=== PATIENT | male | born 1955 | race Caucasian/White ===

== ENCOUNTER 2023-07-27 18:33 | Inpatient (IN) | payer MEDICARE, SELFPAY ==
--- NOTE | ~2023-07-27 | CT_ITS ---
Non-contrast CT scan of the Abdomen and Pelvis Clinical indication: Pain Technique: 2.5 mm axial scans were obtained through the abdomen and pelvis without intravenous or or al contrast. Dose reduction technique was used on this scan by utilizing automated exposure control a nd iterative reconstruction technique. The dose-length product (DLP) was 1137.75 mGy-cm. Findings: Images through the lung bases reveal partially imaged moderate bilateral pleural effusions with partial bilateral lower lobe atelectasis. Kidneys are relatively atrophic bilaterally. There is a 2.7 cm left renal mass, which could reflect h yperdense cyst versus solid lesion. The liver, spleen, pancreas, gallbladder, and adrenals appear normal. There are atherosclerotic calci fications of the aorta. There is no evidence of bowel obstruction. Rectosigmoid anastomosis noted. Images through the pelvis were performed. There is no evidence of ascites or lymphadenopathy. Right l ower quadrant transplant kidney present, without hydronephrosis. Urinary bladder unremarkable. No pel you mass seen. There are bilateral L5 pars interarticularis defects, with 8 mm anterolisthesis of L5 over S1. Impression: Moderate bilateral pleural effusions with partial bilateral lower lobe atelectasis. 2.7 cm left renal mass, which could reflect solid lesion versus possibly hyperdense cyst. Pre and pos tcontrast CT or MR recommended to assess for solid lesion which would be suspicious for neoplasm. Right lower quadrant transplant kidney, without hydronephrosis. Bilateral L5 pars interarticularis defects. Reviewed, dictated and finalized at [facility]. Impression: Moderate bilateral pleural effusions with partial bilateral lower lobe atelecta sis. 2.7 cm left renal mass, which could reflect solid lesion versus possibly hyperd ense cyst. Pre and postcontrast CT or MR recommended to assess for solid lesion which would be suspicious for neoplasm. Right lower quadrant transplant kidney, without hydronephrosis. Bilateral L5 pars interarticularis defects.
--- NOTE | ~2023-07-27 | MR_ITS ---
EXAMINATION: MR abdomen wo/w con DATE: 07/31/2023 11:43 INDICATION: Left kidney mass. TECHNIQUE: Magnetic resonance imaging (MRI) of the abdomen was performed without and with 17 mL Multi Zaid intravenous contrast. COMPARISON: CT abdomen and pelvis 07/29/2023 FINDINGS: There are moderate-sized right and small left pleural effusions. There are cysts in the liver measuri ng up to 5 mm. The gallbladder is contracted. Calcifications in the spleen are consistent with old gr anulomatous disease. The pancreas and adrenal glands are normal. There is severe atrophy of the nativ e kidneys. There is a 7 mm cyst in right kidney. There is a 2.8 cm hemorrhagic cyst in left kidney. T here is a transplant kidney in right iliac fossa. There are no dilated loops of bowel. There are no p athologically enlarged lymph nodes. There is no free intraperitoneal fluid. There are 2 left-sided ve ntral hernias containing fat. There is a right groin catheter with tip in the inferior vena cava. The re are prominent subcutaneous veins in anterior abdominal wall. IMPRESSION: 1. 2.8 cm hemorrhagic cyst in left kidney. 2. Moderate-sized right and small left pleural effusions. Reviewed, dictated and finalized at location A.
--- NOTE | ~2023-07-27 | XR_ITS ---
EXAMINATION: XR chest 1V portable Exam Date/Time: 07/27/2023 20:15 CDT HISTORY: anemia Comparison: None. RESULT: Lines, tubes, and devices: None. Lungs and pleura: Hazy right basilar groundglass opacities, streaky bibasilar subsegmental opacities , mild bilateral costophrenic angle blunting. Cardiomediastinal silhouette: Stable. Other: No acute osseous or upper abdominal finding. IMPRESSION: Bibasilar subsegmental atelectasis/consolidation. Small bilateral pleural effusions, greater on the r ight. Reviewed, dictated and finalized at location [facility]. IMPRESSION: Bibasilar subsegmental atelectasis/consolidation. Small bilateral pleural effus ions, greater on the right.
[2023-07-27 18:31] VITALS: BP 124/59; PULSE 67; RESP 15; TEMP 36.1; O2SAT 91
--- NOTE | 2023-07-27 19:32 | ECG_ITS ---
SEE SCANNED COPY FOR CONFIRMED REPORT MTDD
--- NOTE | 2023-07-27 20:05 | ED.GENADULT ---
HPI - General Adult General Chief complaint: Recheck/Abnormal Lab/Rx Stated complaint: GETTING A BLOOD TXF AND NEEDS A HD NURSE Time Seen by Provider: 07/27/23 19:12 History of Present Illness HPI narrative: This is a 68-year-old male with history end-stage renal disease Wednesday sent in for low hemoglobin. Hemoglobin 6.6 at rehab. His only concern is he has had 4 days black diarrhea although he is on iron supplementation 3 times a day. Patient is a vasculopath and has very difficult access. He has a hemodialysis catheter in his thigh which is the only access available for this patient. He can only be accessed by hemodialysis nurse which we do not have in our emergency department. Related Data Home Medications Medication Instructions Recorded Confirmed allopurinol 100 mg tablet 200 mg PO DAILY@0800 07/21/23 apixaban 2.5 mg tablet 2.5 mg PO BID 07/21/23 07/21/23 ascorbic acid (vitamin C) 1,000 mg 1 g PO BID 07/21/23 07/21/23 tablet aspirin 81 mg capsule 81 mg PO DAILY 07/21/23 07/21/23 chlorthalidone 25 mg tablet 25 mg PO DAILY 07/21/23 07/21/23 ferrous sulfate 325 mg (65 mg 325 mg PO TIDWM 07/21/23 07/21/23 iron) tablet fluconazole 200 mg tablet 200 mg PO DAILY 07/21/23 07/21/23 hydralazine 25 mg tablet 25 mg PO TID 07/21/23 07/21/23 hydralazine 50 mg tablet 25 mg PO TID 07/21/23 mycophenolate sodium 360 mg 360 mg PO BID 07/21/23 07/21/23 tablet,delayed release nifedipine 60 mg tablet,extended 60 mg PO DAILY 07/21/23 07/21/23 release omeprazole 20 mg capsule,delayed 20 mg PO DAILY 07/21/23 07/21/23 release potassium chloride 20 mEq 10 meq PO DAILY 07/21/23 07/21/23 tablet,extended release (K-Tab) tacrolimus 1 mg tablet,extended 1 mg PO DAILY 07/21/23 07/21/23 release 24 hr (Envarsus XR) torsemide 20 mg tablet 40 mg PO BID 07/21/23 07/21/23 tramadol 50 mg tablet 50 mg PO Q12H PRN pain 07/21/23 07/21/23 Allergies Allergy/AdvReac Type Severity Reaction Status Date / Time acetaminophen Allergy Unknown Verified 03/21/22 05:06 iron dextran complex Allergy Anaphylactic Verified 03/21/22 05:01 Shock hydrocodone AdvReac Itching Verified 03/21/22 05:08 PMFSH Family History Family History Other Diabetes mellitus Heart disease Hyperchloremia Hypertension Social History Social History Smoking packs per day: 2 Smoking cigarettes per day: 40.0 Years smoked: 40 Smoking pack-years: 80.00 Smoking status: Former smoker Tobacco type: cigarettes Do You Feel Safe in your Home?: Yes Lack of Transportation: No Lack of Food: Never True Current Housing: I Have Housing Concerned About Future Housing: No Difficulty Paying Gas/Electric Bills: No Difficulty Paying for Meds: No Currently Unemployed: No Education: Decline to Answer Difficulty w/ Childcare or Family Care: No Spiritual care concerns: No Exam Narrative: APPEARANCE: No apparent distress. Head: atraumatic. EYES: EOMI, NOSE: Atraumatic NECK: Trachea midline RESPIRATORY: No increased rate of breathing clear to auscultation CARDIOVASCULAR: RRR, ABDOMINAL: Non-distended soft nontender, rectal exam showed no blood or stool in the rectal vault. Hemoccult negative MUSCULOSKELETAl: No obvious deformities NEURO: Alert. Moving 4/4 extremities SKIN:: Patient has fungal infection of his forearms bilaterally. PSYCHIATRIC: Normal affect Course Vital Signs Vital signs: Vital Signs Temperature 96.9 F L 07/27/23 18:31 Pulse Rate 67 07/27/23 18:31 Respiratory Rate 15 07/27/23 18:31 Blood Pressure 124/59 L 07/27/23 18:31 Pulse Oximetry 91 07/27/23 18:31 Oxygen Delivery Room Air 07/27/23 18:31 Temperature 96.9 F L 07/27/23 18:31 Pulse Rate 67 07/27/23 18:31 Respiratory Rate 15 07/27/23 18:31 Blood Pressure 124/59 L 07/27/23 18:31 Pulse Oximetry 91
[2023-07-27 21:27] VITALS: BP 115/103; PULSE 66; RESP 16; TEMP 36.8; O2SAT 91
[2023-07-27 22:35] VITALS: BP 120/98; PULSE 65; RESP 17; TEMP 36.8; O2SAT 93
[2023-07-27 22:44] VITALS: BMI 30.6
[2023-07-27 22:45] VITALS: BP 98/41; PULSE 61; RESP 16; TEMP 36.6; O2SAT 94
--- NOTE | 2023-07-27 22:46 | ADMGEN ---
This patient, Elver Posey, was admitted to Medical Room 342-01. Patient/family oriented to hospital policies and general routines including ID bracelet, bed and alarms, visiting hours, pain management, procedures, bathroom and other care routines, personal items, smoking policy, room service/diet, and visiting hours. Information on how to activate the Rapid Response Team has been discussed. Patient/Family are encouraged to report perceived risks to care and to ask questions if they do not understand what they are told or what they should do.
[2023-07-27 23:06] VITALS: BP 98/41; PULSE 61; TEMP 36.6; O2SAT 94; BMI 30.6
[2023-07-28] VITALS (34 sets, daily range): BP systolic 78–186; BP diastolic 17–69; PULSE 54–77; RESP 16–20; TEMP 36.1–37.3; O2SAT 92–98
--- NOTE | 2023-07-28 02:11 | PM.IMHP ---
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 Patient is residing at rehabilitation facility was sent for evaluation to the emergency room due to acute anemia. Preliminary workup was significant for hemoglobin of 6.6. Patient has been admitted for transfusion with dialysis. EXAMINATION:? XR chest 1V portable Exam Date/Time:? 07/27/2023 20:15 CDT HISTORY: anemia ? Comparison:? None. RESULT: Lines, tubes, and devices:? None. Lungs and pleura:? Hazy right basilar groundglass opacities, streaky bibasilar subsegmental opacities, mild bilateral costophrenic angle blunting. Cardiomediastinal silhouette:? Stable. Other:? No acute osseous or upper abdominal finding. ? IMPRESSION: Bibasilar subsegmental atelectasis/consolidation. Small bilateral pleural effusions, greater on the right. Review of Systems Review of Systems: Low hemoglobin Constitutional: Constitutional: Denies chills, Denies fever(s) and Denies night sweats Eyes: Eyes: Denies change in vision ENT: Denies dysphagia and Denies odynophagia Cardiovascular: Cardiovascular: Denies chest pain, Denies radiating jaw, neck or arm pain and Denies palpitations Respiratory: Respiratory: Denies cough and Denies dyspnea Gastrointestinal: Gastrointestinal: Denies abdominal pain, Denies melena, Denies hematochezia, Denies coffee ground emesis, Denies nausea and Denies vomiting Genitourinary: Genitourinary: Denies dysuria Musculoskeletal: Musculoskeletal: Denies myalgias Integumentary/Breasts: Skin/Breast: Reports rash ( left forearm) Neurologic: Denies focal weakness and Denies Sensory deficit (Neuro) Psychiatric: Psychiatric: Reports no additional psychiatric complaints and Reports as per HPI Endocrine: Endocrine: Denies cold intolerance, Denies heat intolerance, Denies polyphagia, Denies polydipsia, Denies polyuria and Denies palpitations Hematologic/Lymphatic: Hematologic/Lymphatic: Reports no additional hematologic/lymphatic complaints and Reports as per HPI Allergic/Immunologic: Allergic/Immunologic: Reports no additional allergic/immunologic complaints and Reports as per HPI [facility] Family History Family History (Updated 07/27/23 @ 23:02 by Aiyana Guerrier RN) Father Heart disease Hypertension Hyperchloremia Social History Social History Smoking packs per day: 2 Smoking cigarettes per day: 40.0 Years smoked: 40 Smoking pack-years: 80.00 Smoking status: Never smoker Tobacco type: cigarettes Alcohol intake: never Substance use: never Substance use type: does not use Do You Feel Safe in your Home?: Yes Lack of Transportation: No Lack of Food: Never True Current Housing: I Have Housing Concerned About Future Housing: No Difficulty Paying Gas/Electric Bills: No Difficulty Paying for Meds: YES Currently Unemployed: No Education: High School Diploma/GED Difficulty w/ Childcare or Family Care: No Spiritual care concerns: No Meds Home Medications and Allergies Home Medications Medication Instructions Recorded Confirmed Type atorvastatin 40 mg tablet 40 mg PO DAILY #30 tabs 03/28/22 07/27/23 Rx carvedilol 12.5 mg tablet (Coreg) 25 mg PO BIDWM #60 tabs 03/28/22 07/27/23 Rx cholecalciferol (vitamin D3) 25 2,000 units PO DAILY #30 tabs 03/28/22 07/27/23 Rx mcg (1,000 unit) tablet (Vitamin D3) escitalopram oxalate 10 mg tablet 5 mg PO DAILY #30 tabs 03/28/22 07/27/23 Rx prednisone 5 mg tablet 5 mg PO DAILY@0800 #30 tabs 03/28/22 07/27/23 Rx allopurinol 100 mg tablet 200 mg PO DAILY@0800 07/21/23 07/27/23 History
[2023-07-28 07:18] LABS: MRSA (PCR) NOT DETECTED (NOT DETECTE)
[2023-07-28 07:51] LABS: Hepatitis B Surface Antigen Negative (Negative)
--- NOTE | 2023-07-28 07:52 | PM.IMPN ---
Progress Note: A&P Assessment and Plan (1) Anemia in ESRD (end-stage renal disease): Code(s): N18.6 - End stage renal disease; D63.1 - Anemia in chronic kidney disease Status: Acute Assessment and Plan: H/H 6.6/23.6 on admission. Patient is a vasculopath and can only be accessed by hemodialysis nurse. There is no dialysis nurse in the ED overnight, per ED note the case was discussed with Dr. Christina who was comfortable transfusing the patent on 07/27 with dialysis. Of note, patient does report dark stools but he is on iron supplementation TID. - As a result patient did not receive a unit of pRBC until this am during dialysis. - Continue to monitor H/H - Fecal occult ordered. No signs of active bleeding. (2) End stage renal disease on dialysis: Code(s): N18.6 - End stage renal disease; Z99.2 - Dependence on renal dialysis Status: Acute Assessment and Plan: - Nephrology consulted - HD plan MWF s/p insertion of tunneled hemodialysis catheter right femoral vein on 07/[address] Houston - Continue Tacrolimus 1 mg daily. Tacrolimus level weekly (wednesday) to draw blood prior to the dose. Goal tacro level is 2-4 - Continue prednisone 5 mg p.o. daily - Continue Allopurinol 200 mg p.o. daily (3) Lung infiltrate: Code(s): R91.8 - Other nonspecific abnormal finding of lung field Status: Acute Assessment and Plan: - CXR: Bibasilar subsegmental atelectasis/consolidation. Small bilateral pleural effusions, greater on the right. - Risk factors: recent hospitalizations, chronic illnesses - Started on HAP tx: Cefepime to be administered with dialysis and azithromycin changed to PO. Vancomycin discontinued after MRSA negative. Discussed a PO antibiotic regimen and patient will be started on Levaquin x5 days. Discontinue azithromycin. - Viral PCR: Flu/COVID/RSV ordered - no supplemental O2 requirement - supportive treatment tyl and ibu prn nebs prn - trend labs - cultures will be drawn with dialysis (4) Type 2 diabetes mellitus with hyperglycemia: Code(s): E11.65 - Type 2 diabetes mellitus with hyperglycemia Status: Acute Assessment and Plan: - hypoglycemia protocol - POC blood glucose ACHS - home medication - none - correct regimen ordered - low dose TIDWM and HS - A1C 07/22: 4.6 (5) Acute deep vein thrombosis (DVT) of right upper extremity: Code(s): I82.621 - Acute embolism and thrombosis of deep veins of right upper extremity Status: Acute Assessment and Plan: Per chart review, DVT in right axillary/ subclavian veins and chronic left IJ DVT - Eliquis 2.5 mg BID (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 He was treated with steroids and was given antibiotics as a precaution.? He was discharged on oral antibiotics.? Despite antibiotics, his left upper extremity progressed as outpatient, with concern for fungal etiology.? He was referred to Dermatology in [place] and underwent skin biopsy in mid May.? He presented to [facility] with worsening edema and oozing from ulcerated lesions.? He was started on empiric Zosyn.? Id was reconsulted, with concern that wound appearance consistent with lichenification in setting of recurrent inflammation.? OSH skin result eventually obtained, which revealed deep cutaneous fungal infection with numerous used within the dermis with narrow base spotting and weak positive staining for musicarmine, raising concern for cutaneous cryptococcal infection.? Serum cryptococcal antigen obtained, which were positive titers with elevation to 1: 1280.? Based on this result, he was initially started on amphotericin B on 07/02.? Hospital course C/ B DVT in right axillary/ subclavian veins and chronic left IJ DV
[2023-07-28 08:41] LABS: Basophils Percent Auto 0.3 % (0.2-1.2); Eosinophils Absolute Auto 0.1 K/mm3 (0-0.3); Eosinophils Percent Auto 1.7 % (0-4.4); Hematocrit 21.5 % (42.0-52.0); Immature Granulocyte Absolute 0.04 K/mm3 (0.00-0.031); Immature Granulocyte Percent A 0.7 % (0-0.5); Lymphocytes Absolute Auto 2.06 K/mm3 (0.9-3.2); Lymphocytes Percent Auto 35.3 % (18.3-44.2); Mean Corpuscular HGB Conc 28.4 g/dl (32-36); Mean Corpuscular Hemoglobin 27.1 pg (26-34); Mean Corpuscular Volume 95.6 fl (80-100); Monocytes Absolute Auto 0.7 K/mm3 (0.1-0.6); Monocytes Percent Auto 12.5 % (2.6-8.5); Neutrophils Absolute Auto 2.9 K/mm3 (1.3-6.7); Neutrophils Percent Auto 49.5 % (45.5-73.1); Nucleated Red Blood Cells Perc 0.5 % (0.0-0.2); Platelet Count Result 215 k/mm3 (150-375); Red Blood Count 2.25 M/mm3 (4.6-6.20); Red Cell Distribution Width 18.3 % (11.5-14.5); White Blood Count 5.8 K/mm3 (4.5-10.0)
[2023-07-28 08:55] LABS: Alanine Aminotransferase 6 U/L (6-50); Albumin Level 2.8 g/dL (3.5-5.1); Alkaline Phosphatase 69 U/L (38-126); Anion Gap 4 mmol/L (4-12); Aspartate Amino Transferase 15 U/L (17-59); Bilirubin,Total 0.3 mg/dL (0.2-1.3); Blood Urea Nitrogen 30 mg/dL (9-20); Calcium 8.5 mg/dL (8.4-10.2); Carbon Dioxide 30 mmol/L (22-30); Chloride 100 mmol/L (98-107); Estimated CRCL calculation 28 ml/min; Estimated Glomerular Filt Rate 24; Glucose 93 mg/dL (65-110); Potassium 3.8 mmol/L (3.4-5.0); Sodium 134 mmol/L (137-145)
[2023-07-28 08:56] LABS: INR 1.2; Partial Thromboplastin Time 38.3 Seconds (22.3-36.8); Prothrombin Time 15.7 Seconds (11.1-14.7)
[2023-07-28 09:21] LABS: Hemoglobin 6.1 g/dL (14.0-18.0)
[2023-07-28 09:22] LABS: Anisocytosis 1+; Hypochromasia 2+; Microcytosis 2+ (NORMAL); Platelet Estimate Adequate (Adequate)
[2023-07-28 09:23] LABS: Schistocytes None Seen
[2023-07-28 10:13] LABS: Hepatitis B Surface Anti Res Negative
[2023-07-28] MEDS: SODIUM CHLORIDE 0.9% IV 250 ML 30 ML IV CONT (10:30)
[2023-07-28] MEDS: ALBUMIN HUMAN 25% 12.5 GM/50ML 50 ML IVPB (10:50)
[2023-07-28] MEDS: CEFEPIME 0.5 GM in SODIUM CHLORIDE 0.9% IV 50 ML IVPB (11:36)
--- NOTE | 2023-07-28 11:50 | P.CONNP_ITS ---
Assessment and Plan Assessment and plan (1) CHRISTIANO (acute kidney injury): Code(s): N17.9 - Acute kidney failure, unspecified Status: Acute Assessment and Plan: * HD today * progressive decline in renal function during acute hospitalization at [facility] * thought to be secondary to ATN from fungal infection and use of amphotericin B * further complicated by fluid overload and uremia * initiated on hemodialysis on 07/09/23 (and has remained dialysis dependent since) * s/p tunneled HD catheter (right femoral) on 07/15 * continue HD on M//F schedule for now * follow trend of repeat labs and UOP to assess for potential renal recovery * it is possible that he may not regain function in his transplant kidney and may be dialysis dependent (2) Chronic kidney disease, stage IV (severe): Code(s): N18.4 - Chronic kidney disease, stage 4 (severe) Status: Chronic Assessment and Plan: * baseline creatinine has been running around 2.6 - 2.8mg/dl * 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 along with high dose diuretic therapy to maintain volume status (3) Anemia: Code(s): D64.9 - Anemia, unspecified Status: Acute Assessment and Plan: * due to CHRISTIANO, CKD, and acute illness * cannot discount the possibility of GI loss * complicated by use of anticoagulation * high dose Epogen with hemodialysis * PRBC transfusion per protocol * follow trend of H/H (4) Status post kidney transplant: Code(s): Z94.0 - Kidney transplant status Status: Chronic Assessment and Plan: * occurred in 2019 * was being treated with combination of mycophenolate (360 twice daily), Envarsus (1 mg daily) and prednisone 5 mg daily for immunosuppression * mycophenolate was discontinued once fungal skin infection discovered/confirmed * given ongoing use of fluconazole, follow tacrolimus levels closely * goal tacrolimus level is 2 - 4 ([facility] * this was apparently discussed with [facility] Transplant team (Vanita [phone]) * continue tacrolimus and prednisone (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 Duran in clinic * completed antibiotics for secondary bacterial skin infection with MSSA, Klebsiella, Proteus (6) Chronic combined systolic (congestive) and diastolic (congestive) heart failure: Code(s): I50.42 - Chronic combined systolic (congestive) and diastolic (congestive) heart failure Status: Acute Assessment and Plan: * due to worsening renal dysfunction and diuretic resistance * complicated by large right pleural effusion as noted during hospitalization at [facility] * s/p thoracentesis (07/10) with 1200cc out * fluid analysis consistent with transudative effusion from volume overload * continue oral diuretics (since still makes urine) * fluid removal with HD in an effort to maintain euvolemia (7) Hypertension: Code(s): I10 - Essential (primary) hypertension Status: Chronic Assessment and Plan: * reasonable control at this time * follow trend of hemodyamics (8) Obstructive sleep apnea: Code(s): G47.33 - Ob
--- NOTE | 2023-07-28 11:50 | PM.CNNEP ---
Assessment and Plan Assessment and plan (1) CHRISTIANO (acute kidney injury): Code(s): N17.9 - Acute kidney failure, unspecified Status: Acute Assessment and Plan: HD today progressive decline in renal function during acute hospitalization at [facility] thought to be secondary to ATN from fungal infection and use of amphotericin B further complicated by fluid overload and uremia initiated on hemodialysis on 07/09/23 (and has remained dialysis dependent since) s/p tunneled HD catheter (right femoral) on 07/15 continue HD on M/W/F schedule for now follow trend of repeat labs and UOP to assess for potential renal recovery it is possible that he may not regain function in his transplant kidney and may be dialysis dependent (2) Chronic kidney disease, stage IV (severe): Code(s): N18.4 - Chronic kidney disease, stage 4 (severe) Status: Chronic Assessment and Plan: baseline creatinine has been running around 2.6 - 2.8mg/dl 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 along with high dose diuretic therapy to maintain volume status (3) Anemia: Code(s): D64.9 - Anemia, unspecified Status: Acute Assessment and Plan: due to CHRISTIANO, CKD, and acute illness cannot discount the possibility of GI loss complicated by use of anticoagulation high dose Epogen with hemodialysis PRBC transfusion per protocol follow trend of H/H (4) Status post kidney transplant: Code(s): Z94.0 - Kidney transplant status Status: Chronic Assessment and Plan: occurred in 2019 was being treated with combination of mycophenolate (360 twice daily), Envarsus (1 mg daily) and prednisone 5 mg daily for immunosuppression mycophenolate was discontinued once fungal skin infection discovered/confirmed given ongoing use of fluconazole, follow tacrolimus levels closely goal tacrolimus level is 2 - 4 (was getting tacrolimus 0.5mg bid at [facility] as opposed to [facility]) this was apparently discussed with [facility] Transplant team (Vanita [phone]) continue tacrolimus and prednisone (5) 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 Duran in clinic completed antibiotics for secondary bacterial skin infection with MSSA, Klebsiella, Proteus (6) Chronic combined systolic (congestive) and diastolic (congestive) heart failure: Code(s): I50.42 - Chronic combined systolic (congestive) and diastolic (congestive) heart failure Status: Acute Assessment and Plan: due to worsening renal dysfunction and diuretic resistance complicated by large right pleural effusion as noted during hospitalization at [facility] s/p thoracentesis (07/10) with 1200cc out fluid analysis consistent with transudative effusion from volume overload continue oral diuretics (since still makes urine) fluid removal with HD in an effort to maintain euvolemia (7) Hypertension: Code(s): I10 - Essential (primary) hypertension Status: Chronic Assessment and Plan: reasonable control at this time follow trend of hemodyamics (8) Obstructive sleep apnea: Code(s): G47.33 - Obstructive sleep apnea (adult) (pediatric) Status: Chronic Assessment and Plan: continue home CPAP when at rest (9) Diabetes mellitus: Code(s): E11.9 - Type 2 diabetes mellitus without complications Status: Chronic Assessment and Plan: follow accu-cheks glycemic control per hospitalists I will continue follow the patient with you while he is hospitalized and make further recommendations as deemed necessary.
[2023-07-28] MEDS: EPOETIN ALFA-EPBX 10,000 UNITS/ML VIAL 10000 UNITS IV PUSH (11:56)
[2023-07-28] MEDS: ASCORBIC ACID 500 MG TABLET 1000 MG PO ×2 (12:43→17:07)
[2023-07-28] MEDS: BUMETANIDE 1 MG TABLET 2 MG PO ×2 (12:43→17:08)
[2023-07-28] MEDS: FERROUS SULFATE 325 MG TABLET DR BY MOUTH ×2 (12:43→17:07)
[2023-07-28] MEDS: ATORVASTATIN 40 MG TABLET PO (12:43)
[2023-07-28] MEDS: PANTOPRAZOLE 40 MG TABLET PO (12:43)
[2023-07-28] MEDS: CHOLECALCIFEROL 1,000 UNITS TABLET 2000 UNITS PO (12:44)
[2023-07-28] MEDS: FLUCONAZOLE 100 MG TABLET 200 MG PO (12:44)
[2023-07-28] MEDS: predniSONE 5 MG TABLET PO (12:44)
[2023-07-28] MEDS: allopurinoL 100 MG TABLET 200 MG PO (12:44)
[2023-07-28] MEDS: ESCITALOPRAM OXALATE 5 MG TABLET PO (12:44)
[2023-07-28] MEDS: AZITHROMYCIN 250 MG TABLET 500 MG PO (12:51)
[2023-07-28 15:09] LABS: Influenza A QL RT-PCR Negative (Negative); Influenza B QL RT-PCR Negative (Negative); RSV RNA, RT-PCR Negative (Negative); SARS-CoV-2 RNA PCR Negative (Negative)
[2023-07-28] MEDS: DICYCLOMINE HCL 10 MG CAPSULE 20 MG PO (17:07)
[2023-07-28 17:47] LABS: IFOB Positive Control Positive; Immunochemical Fecal Occult Bl Positive (N)
[2023-07-28] MEDS: ASPIRIN 81 MG ENTERIC TABLET PO (18:26)
[2023-07-28] MEDS: levoFLOXacin 750 MG TABLET PO (20:26)
[2023-07-28] MEDS: traMADol HCL (*CRX) 50 MG TABLET PO (20:27)
[2023-07-28 21:19] LABS: Basophils Percent Auto 0.2 % (0.2-1.2); Eosinophils Absolute Auto 0.1 K/mm3 (0-0.3); Eosinophils Percent Auto 0.9 % (0-4.4); Hematocrit 24.4 % (42.0-52.0); Hemoglobin 7.1 g/dL (14.0-18.0); Immature Granulocyte Absolute 0.06 K/mm3 (0.00-0.031); Lymphocytes Absolute Auto 1.38 K/mm3 (0.9-3.2); Lymphocytes Percent Auto 23.8 % (18.3-44.2); Mean Corpuscular HGB Conc 29.1 g/dl (32-36); Mean Corpuscular Hemoglobin 27.3 pg (26-34); Mean Corpuscular Volume 93.8 fl (80-100); Mean Platelet Volume 9.5 fl (7.4-10.4); Monocytes Absolute Auto 0.8 K/mm3 (0.1-0.6); Monocytes Percent Auto 13.3 % (2.6-8.5); Neutrophils Absolute Auto 3.5 K/mm3 (1.3-6.7); Neutrophils Percent Auto 60.8 % (45.5-73.1); Nucleated Red Blood Cells Perc 0.9 % (0.0-0.2); Platelet Count Result 276 k/mm3 (150-375); Red Cell Distribution Width 18.3 % (11.5-14.5); White Blood Count 5.8 K/mm3 (4.5-10.0)
[2023-07-28 21:22] LABS: Anisocytosis 1+; Hypochromasia 2+; Microcytosis 1+ (NORMAL); Platelet Estimate Adequate (Adequate)
[2023-07-28 21:23] LABS: Schistocytes None Seen
[2023-07-29] VITALS (9 sets, daily range): BP systolic 103–140; BP diastolic 33–49; PULSE 57–68; RESP 16–20; TEMP 36.4–37.1; O2SAT 91–94
--- NOTE | 2023-07-29 07:25 | PM.IMPN ---
Progress Note: A&P Assessment and Plan (1) Anemia in ESRD (end-stage renal disease): Code(s): N18.6 - End stage renal disease; D63.1 - Anemia in chronic kidney disease Status: Acute Assessment and Plan: H/H 6.6/23.6 on admission. Anemia likely related to patients worsening renal function. Patient is a vasculopath and can only be accessed by hemodialysis nurse. There is no dialysis nurse in the ED overnight, per ED note the case was discussed with Dr. Christina who was comfortable transfusing the patent on 07/27 with dialysis. Of note, patient does report dark stools but he is on iron supplementation TID. - As a result patient did not receive a unit of pRBC until this am during dialysis. H/H responded appropriatly to blood transfusion and remains stable at this time. - Continue to monitor H/H - Blood transfusion if hemoglobin < 7.0 - Fecal occult positive. GI consulted. Plan for EGD/Colonoscopy in the morning (2) End stage renal disease on dialysis: Code(s): N18.6 - End stage renal disease; Z99.2 - Dependence on renal dialysis Status: Acute Assessment and Plan: - Nephrology consulted - HD plan MWF s/p insertion of tunneled hemodialysis catheter right femoral vein on 07/[address] Houston - Continue Tacrolimus 1 mg daily. Tacrolimus level weekly (wednesday) to draw blood prior to the dose. Goal tacro level is 2-4 - Continue prednisone 5 mg p.o. daily - Continue Allopurinol 200 mg p.o. daily (3) Lung infiltrate: Code(s): R91.8 - Other nonspecific abnormal finding of lung field Status: Acute Assessment and Plan: - CXR: Bibasilar subsegmental atelectasis/consolidation. Small bilateral pleural effusions, greater on the right. - Risk factors: recent hospitalizations, chronic illnesses - Started on HAP tx: Cefepime to be administered with dialysis and azithromycin changed to PO. Vancomycin discontinued after MRSA negative. Discussed a PO antibiotic regimen and patient will be started on Levaquin x5 days. Discontinue azithromycin. - Viral PCR: Flu/COVID/RSV ordered - no supplemental O2 requirement - supportive treatment tyl prn - trend labs - cultures will be drawn with dialysis (4) Type 2 diabetes mellitus with hyperglycemia: Code(s): E11.65 - Type 2 diabetes mellitus with hyperglycemia Status: Acute Assessment and Plan: - home medication - none - monitor glucose levels with daily labs - A1C 07/22: 4.6 (5) Acute deep vein thrombosis (DVT) of right upper extremity: Code(s): I82.621 - Acute embolism and thrombosis of deep veins of right upper extremity Status: Acute Assessment and Plan: Per chart review, DVT in right axillary/ subclavian veins and chronic left IJ DVT - Holding eliquis 2.5 mg BID until patient evaluated by GI for positive fecal occult with low hemoglobin (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 He was treated with steroids and was given antibiotics as a precaution.? He was discharged on oral antibiotics.? Despite antibiotics, his left upper extremity progressed as outpatient, with concern for fungal etiology.? He was referred to Dermatology in [place] and underwent skin biopsy in mid May.? He presented to [facility] with worsening edema and oozing from ulcerated lesions.? He was started on empiric Zosyn.? Id was reconsulted, with concern that wound appearance consistent with lichenification in setting of recurrent inflammation.? OSH skin result eventually obtained, which revealed deep cutaneous fungal infection with numerous used within the dermis with narrow base spotting and weak positive staining for musicarmine, raising concern for cutaneous cryptococcal infection.? Serum cryptococcal antigen obtained, w
[2023-07-29] MEDS: ASCORBIC ACID 500 MG TABLET 1000 MG PO ×2 (09:01→16:33)
[2023-07-29] MEDS: PANTOPRAZOLE 40 MG TABLET PO (09:01)
[2023-07-29] MEDS: CHOLECALCIFEROL 1,000 UNITS TABLET 2000 UNITS PO (09:01)
[2023-07-29] MEDS: FLUCONAZOLE 100 MG TABLET 200 MG PO (09:01)
[2023-07-29] MEDS: ATORVASTATIN 40 MG TABLET PO (09:01)
[2023-07-29] MEDS: ESCITALOPRAM OXALATE 5 MG TABLET PO (09:01)
[2023-07-29] MEDS: FERROUS SULFATE 325 MG TABLET DR BY MOUTH ×3 (09:01→16:33)
[2023-07-29] MEDS: allopurinoL 100 MG TABLET 200 MG PO (09:01)
[2023-07-29] MEDS: BUMETANIDE 1 MG TABLET 2 MG PO ×2 (09:01→16:33)
[2023-07-29] MEDS: ASPIRIN 81 MG ENTERIC TABLET PO (09:01)
[2023-07-29] MEDS: predniSONE 5 MG TABLET PO (09:03)
[2023-07-29 10:05] LABS: Basophils Percent Auto 0.5 % (0.2-1.2); Eosinophils Absolute Auto 0.1 K/mm3 (0-0.3); Eosinophils Percent Auto 1.4 % (0-4.4); Hematocrit 25.2 % (42.0-52.0); Hemoglobin 7.3 g/dL (14.0-18.0); Immature Granulocyte Absolute 0.06 K/mm3 (0.00-0.031); Lymphocytes Absolute Auto 1.89 K/mm3 (0.9-3.2); Lymphocytes Percent Auto 32.4 % (18.3-44.2); Mean Corpuscular Hemoglobin 27.5 pg (26-34); Mean Corpuscular Volume 95.1 fl (80-100); Mean Platelet Volume 9.2 fl (7.4-10.4); Monocytes Absolute Auto 0.8 K/mm3 (0.1-0.6); Monocytes Percent Auto 14.2 % (2.6-8.5); Neutrophils Percent Auto 50.5 % (45.5-73.1); Nucleated Red Blood Cells Perc 0.7 % (0.0-0.2); Platelet Count Result 271 k/mm3 (150-375); Red Blood Count 2.65 M/mm3 (4.6-6.20); Red Cell Distribution Width 18.8 % (11.5-14.5); White Blood Count 5.8 K/mm3 (4.5-10.0)
[2023-07-29 10:21] LABS: Alanine Aminotransferase 9 U/L (6-50); Albumin Level 3.1 g/dL (3.5-5.1); Alkaline Phosphatase 69 U/L (38-126); Anion Gap 3 mmol/L (4-12); Aspartate Amino Transferase 22 U/L (17-59); Bilirubin,Total 0.5 mg/dL (0.2-1.3); Blood Urea Nitrogen 17 mg/dL (9-20); Calcium 8.6 mg/dL (8.4-10.2); Carbon Dioxide 33 mmol/L (22-30); Chloride 100 mmol/L (98-107); Estimated CRCL calculation 30 ml/min; Estimated Glomerular Filt Rate 30; Glucose 105 mg/dL (65-110); Potassium 3.9 mmol/L (3.4-5.0); Sodium 136 mmol/L (137-145)
--- NOTE | 2023-07-29 11:18 | P.CONGI_ITS ---
I, Daniel Espinal MD, have provided a substantive portion of the care of this patient and discussed the patient with my Nurse Practitioner. I have reviewed any new relevant radiographic and laboratory results including medications. I agree with her documentation as noted below.?I personally performed the medical decision making and much of the history and exam for this encounter. 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 Also recurrent anemia, had EGD with colonoscopy at [facility] about 6 months ago without major findings. He is on iron daily and normally had dark stools. He also was on eliquis. He is staying at local rehab and noted worsening anemia hgb 6, few days ago some blood after wiping. Treated medically, blood transfusion and will do EGD/colonoscopy, probably anemia mostly from worse jeannette renal failure. Currently he is on oral fluconazole. Assessment and Plan Assessment and plan (1) End stage renal disease on dialysis: Code(s): N18.6 - End stage renal disease; Z99.2 - Dependence on renal dialysis Status: Acute (2) Acute blood loss anemia: Code(s): D62 - Acute posthemorrhagic anemia Status: Acute (3) Upper abdominal pain: Code(s): R10.10 - Upper abdominal pain, unspecified Status: Acute (4) Heme positive stool: Code(s): R19.5 - Other fecal abnormalities Status: Acute (5) Diarrhea: Qualifiers: Diarrhea type: unspecified type Qualified Code(s): R19.7 - Diarrhea, unspecified Code(s): R19.7 - Diarrhea, unspecified Status: Acute Plan 1) Acute on chronic anemia/heme positive stools/hematochezia: Patient with anemia of chronic disease with ESRD S/P failed transplant getting HD M,W,F. Patient with known acute and chronic DVT's but states that he was not able to start his prescribed Eliquis prior to admission due to the cost but was taking aspirin 81 mg daily. On admission patient was showed to have HGB 6.6 and received 1 unit PRBC's and today Hgb 7.3, Hct 25, MCV 95, platelets 271 and INR 1.2. He admits to [facility] 3 days ago and has chronic dark stool taking TID PO iron. Patient states that he had an EGD and colonoscopy in [place] around 6 months ago, results unknown. Denies prior capsule endoscopy. CT negative for any abnormal GI findings. * Plan for EGD and colonoscopy tomorrow * Clear liquid diet today * NPO after midnight * Miralax prep to start at 1600 * Mag Citrate 2-3 am the morning of scopes * Obtain consent * Care with anticoagulants * If EGD and colonoscopy shows no source of GI bleeding will consider capsule endoscopy outpatient to evaluate the small bowel 2) BUQ abdominal pain/diarrhea: Patient admits to recent change in bowel habits. Patient is having 5-6 liquid urgent BM's with fecal incontinence. Per patient he had a partial colon resection 26 years ago for diverticulitis complications and had 3-4 inches of colon removed. He normally has 1-2 formed and non urgent BM's per day. * Stool studies ordered * Once acute infectious process is excluded, start dicyclomine 10 mg as needed Thank you very much for allowing me to share in the care of this very nice patient. GI Consult Note Consult date/time: 07/29/23 11:18 Reason for consult: Anemia and heme positive stools HPI: Elver Posey is a 68 year old male with
--- NOTE | 2023-07-29 11:18 | WPDGICN ---
Assessment and Plan Assessment and plan (1) End stage renal disease on dialysis: Code(s): N18.6 - End stage renal disease; Z99.2 - Dependence on renal dialysis Status: Acute (2) Acute blood loss anemia: Code(s): D62 - Acute posthemorrhagic anemia Status: Acute (3) Upper abdominal pain: Code(s): R10.10 - Upper abdominal pain, unspecified Status: Acute (4) Heme positive stool: Code(s): R19.5 - Other fecal abnormalities Status: Acute (5) Diarrhea: Qualifiers: Diarrhea type: unspecified type Qualified Code(s): R19.7 - Diarrhea, unspecified Code(s): R19.7 - Diarrhea, unspecified Status: Acute Plan 1) Acute on chronic anemia/heme positive stools/hematochezia: Patient with anemia of chronic disease with ESRD S/P failed transplant getting HD M,W,F. Patient with known acute and chronic DVT's but states that he was not able to start his prescribed Eliquis prior to admission due to the cost but was taking aspirin 81 mg daily. On admission patient was showed to have HGB 6.6 and received 1 unit PRBC's and today Hgb 7.3, Hct 25, MCV 95, platelets 271 and INR 1.2. He admits to [facility] 3 days ago and has chronic dark stool taking TID PO iron. Patient states that he had an EGD and colonoscopy in [place] around 6 months ago, results unknown. Denies prior capsule endoscopy. CT negative for any abnormal GI findings. Plan for EGD and colonoscopy tomorrow Clear liquid diet today NPO after midnight Miralax prep to start at 1600 Mag Citrate 2-3 am the morning of scopes Obtain consent Care with anticoagulants If EGD and colonoscopy shows no source of GI bleeding will consider capsule endoscopy outpatient to evaluate the small bowel 2) BUQ abdominal pain/diarrhea: Patient admits to recent change in bowel habits. Patient is having 5-6 liquid urgent BM's with fecal incontinence. Per patient he had a partial colon resection 26 years ago for diverticulitis complications and had 3-4 inches of colon removed. He normally has 1-2 formed and non urgent BM's per day. Stool studies ordered Once acute infectious process is excluded, start dicyclomine 10 mg as needed Thank you very much for allowing me to share in the care of this very nice patient. GI Consult Note Consult date/time: 07/29/23 11:18 Reason for consult: Anemia and heme positive stools HPI: Elver Posey is a 68 year old male with past medical/surgical Hx of failed kidney transplant, ESRD on hemodialysis, anemia or chronic disease, DVT and CAITY. He presented to the ER for low hemoglobin noted at the rehabilitation facility he resides at. GI was consulted to anemia and heme positive stools. Patient with acute on chronic anemia who had an EGD and colonoscopy around 6 months ago, results were not available. He admits to rectal bleeding 3 days ago and he has chronic black stools as he takes TID oral iron but he states that his stools have been tarry recently. Per patient he was unable to start Eliquis prior to his admission due to the cost but was taking aspirin 81 mg daily.. Admits to BUQ pain that he describes as a dull ache that has been occurring along with diarrhea over the past few days. He is having 5-6 liquid urgent BM's daily where he was previously having 1-2 formed BM's per day. He also admits to unmeasured weight loss and appetite loss. Reflux well controlled on PPI. Denies nausea, vomiting, bloating, odynophagia, dysphagia, early satiety, or constipation. ENDOSCOPY HISTORY: Per patient he had an EGD and colonoscopy in [place] but patient was unable to say which doctor did the scope. Per patient he had polyps IMAGING: CT abd/pelvis w/o contrast 07/29/2023 Impression: Moderate bilateral pleural effusions with partial bilateral lower lobe atelectasis. 2.7 cm left renal mass, which could reflect solid lesion versus possibly hyperdense cyst. P
[2023-07-29 11:19] LABS: Anisocytosis 1+; Platelet Estimate Adequate (Adequate)
[2023-07-29 11:20] LABS: Hypochromasia 1+; Macrocytosis 1+ (NORMAL); Schistocytes Rare
[2023-07-29] MEDS: ENOXAPARIN 40 MG/0.4 ML SYRINGE SUB-Q (12:33)
--- NOTE | 2023-07-29 13:15 | PM.PNNEP ---
Progress Note: A&P Assessment and Plan (1) CHRISTIANO (acute kidney injury): Code(s): N17.9 - Acute kidney failure, unspecified Status: Acute Assessment and Plan: HD tomorrow progressive decline in renal function during acute hospitalization at [facility] thought to be secondary to ATN from fungal infection and use of amphotericin B further complicated by fluid overload and uremia initiated on hemodialysis on 07/09/23 (and has remained dialysis dependent since) s/p tunneled HD catheter (right femoral) on 07/15 continue HD on M/W/F schedule for now follow trend of repeat labs and UOP to assess for potential renal recovery it is possible that he may not regain function in his transplant kidney and may be dialysis dependent (2) Chronic kidney disease, stage IV (severe): Code(s): N18.4 - Chronic kidney disease, stage 4 (severe) Status: Chronic Assessment and Plan: baseline creatinine has been running around 2.6 - 2.8mg/dl 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 along with high dose diuretic therapy to maintain volume status (3) Anemia: Code(s): D64.9 - Anemia, unspecified Status: Acute Assessment and Plan: due to CHRISTIANO, CKD, and acute illness complicated by use of anticoagulation (Eliquis on hold) HOWEVER, noted to be guiaiac positive.... GI following noted plan for EGD/colonoscopy tomorrow high dose Epogen with hemodialysis PRBC transfusion per protocol follow trend of H/H (4) Status post kidney transplant: Code(s): Z94.0 - Kidney transplant status Status: Chronic Assessment and Plan: occurred in 2019 was being treated with combination of mycophenolate (360 twice daily), Envarsus (1 mg daily) and prednisone 5 mg daily for immunosuppression mycophenolate was discontinued once fungal skin infection discovered/confirmed given ongoing use of fluconazole, follow tacrolimus levels closely goal tacrolimus level is 2 - 4 (was getting tacrolimus 0.5mg bid at [facility] as opposed to envarsus) this was apparently discussed with patient's [facility] major donor coordinator (Vanita [phone]) continue tacrolimus and prednisone (5) 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 Duran (Infectious Disease) in clinic completed antibiotics for secondary bacterial skin infection with MSSA, Klebsiella, Proteus (6) Chronic combined systolic (congestive) and diastolic (congestive) heart failure: Code(s): I50.42 - Chronic combined systolic (congestive) and diastolic (congestive) heart failure Status: Acute Assessment and Plan: due to worsening renal dysfunction and diuretic resistance complicated by large right pleural effusion as noted during hospitalization at [facility] s/p thoracentesis (07/10) with 1200cc out fluid analysis consistent with transudative effusion from volume overload continue oral diuretics (since still makes urine) fluid removal with HD in an effort to maintain euvolemia (7) Hypertension: Code(s): I10 - Essential (primary) hypertension Status: Chronic Assessment and Plan: reasonable control at this time follow trend of hemodyamics (8) Obstructive sleep apnea: Code(s): G47.33 - Obstructive sleep apnea (adult) (pediatric) Status: Chronic Assessment and Plan: continue home CPAP when at rest (9) Diabetes mellitus: Code(s): E11.9 - Type 2 diabetes mellitus without complications Status: Chronic Assessment and Plan: follow accu-cheks glycemic control per hospitalists Will contin
--- NOTE | 2023-07-29 13:15 | P.PNNP_ITS ---
Progress Note: A&P Assessment and Plan (1) CHRISTIANO (acute kidney injury): Code(s): N17.9 - Acute kidney failure, unspecified Status: Acute Assessment and Plan: * HD tomorrow * progressive decline in renal function during acute hospitalization at [facility] * thought to be secondary to ATN from fungal infection and use of amphotericin B * further complicated by fluid overload and uremia * initiated on hemodialysis on 07/09/23 (and has remained dialysis dependent since) * s/p tunneled HD catheter (right femoral) on 07/15 * continue HD on // schedule for now * follow trend of repeat labs and UOP to assess for potential renal recovery * it is possible that he may not regain function in his transplant kidney and may be dialysis dependent (2) Chronic kidney disease, stage IV (severe): Code(s): N18.4 - Chronic kidney disease, stage 4 (severe) Status: Chronic Assessment and Plan: * baseline creatinine has been running around 2.6 - 2.8mg/dl * 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 * GI following * noted plan for EGD/colonoscopy tomorrow * high dose Epogen with hemodialysis * PRBC transfusion per protocol * follow trend of H/H (4) Status post kidney transplant: Code(s): Z94.0 - Kidney transplant status Status: Chronic Assessment and Plan: * occurred in 2019 * was being treated with combination of mycophenolate (360 twice daily), Envarsus (1 mg daily) and prednisone 5 mg daily for immunosuppression * mycophenolate was discontinued once fungal skin infection discovered/confirmed * given ongoing use of fluconazole, follow tacrolimus levels closely * goal tacrolimus level is 2 - 4 (was getting tacrolimus 0.5mg bid at [facility] as opposed to envarsus) * this was apparently discussed with patient's [facility] pharmacy intake coordinator (Vanita [phone]) * continue tacrolimus and prednisone (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 Duran (Infectious Disease) in clinic * completed antibiotics for secondary bacterial skin infection with MSSA, Klebsiella, Proteus (6) Chronic combined systolic (congestive) and diastolic (congestive) heart failure: Code(s): I50.42 - Chronic combined systolic (congestive) and diastolic (congestive) heart failure Status: Acute Assessment and Plan: * due to worsening renal dysfunction and diuretic resistance * complicated by large right pleural effusion as noted during hospitalization at [facility] * s/p thoracentesis (07/10) with 1200cc out * fluid analysis consistent with transudative effusion from volume overload * continue oral diuretics (since still makes urine) * fluid removal with HD in an effort to maintain euvolemia (7) Hypertension: Code(s): I10 - Essential (primary) hypertension Status: Chronic Assessment and Plan: * reasonable contr
[2023-07-29] MEDS: BISACODYL 5 MG TABLET EC 20 MG PO (14:56)
[2023-07-29] MEDS: polyethylene glycoL 3350 238 GM BOTTLE PO (17:16)
[2023-07-29 18:04] LABS: Toxigenic C. Diff POSITIVE (NEGATIVE)
[2023-07-29] MEDS: VANCOMYCIN HCL 125 MG ORAL CAPSULE PO (20:43)
[2023-07-30] VITALS (34 sets, daily range): BP systolic 92–162; BP diastolic 31–93; PULSE 60–68; RESP 14–18; TEMP 36.1–37; O2SAT 92–100
[2023-07-30] MEDS: VANCOMYCIN HCL 125 MG ORAL CAPSULE PO ×5 (01:00→23:06)
[2023-07-30] MEDS: MAGNESIUM CITRATE 300 ML BTL PO (03:00)
[2023-07-30] MEDS: SODIUM CHLORIDE 0.9% IV 1,000 ML 999 ML IV CONT (06:30)
--- NOTE | 2023-07-30 07:20 | PC.NURSE ---
Patient transported to dialysis per bed.
--- NOTE | 2023-07-30 07:51 | PM.IMPN ---
Progress Note: A&P Assessment and Plan (1) Anemia in ESRD (end-stage renal disease): Code(s): N18.6 - End stage renal disease; D63.1 - Anemia in chronic kidney disease Status: Acute Assessment and Plan: H/H 6.6/23.6 on admission. Anemia likely related to patients worsening renal function. Patient is a vasculopath and can only be accessed by hemodialysis nurse. There is no dialysis nurse in the ED overnight, per ED note the case was discussed with Dr. Christina who was comfortable transfusing the patent on 07/27 with dialysis. Of note, patient does report dark stools but he is on iron supplementation TID. - As a result patient did not receive a unit of pRBC until this am during dialysis. H/H responded appropriatly to blood transfusion and remains stable at this time. - Continue to monitor H/H - Blood transfusion if hemoglobin < 7.0 - Fecal occult positive. GI consulted. EGD unremarkable. Colonoscopy with 3 mm cecal polyp and 3mm descending colon polyp. No active bleeding. (2) End stage renal disease on dialysis: Code(s): N18.6 - End stage renal disease; Z99.2 - Dependence on renal dialysis Status: Acute Assessment and Plan: - Nephrology consulted - HD plan MWF s/p insertion of tunneled hemodialysis catheter right femoral vein on 07/[address] Houston - Continue Tacrolimus 1 mg daily. Tacrolimus level weekly (wednesday) to draw blood prior to the dose. Goal tacro level is 2-4 - Continue prednisone 5 mg p.o. daily - Continue Allopurinol 200 mg p.o. daily - Abdominal/pelvis CT: 2.7 cm left renal mass, which could reflect solid lesion versus possibly hyperdense cyst. Pre and postcontrast CT or MR recommended to assess for solid lesion which would be suspicious for neoplasm. Right lower quadrant transplant kidney, without hydronephrosis. - Call made to transplant coordination (Vanita). Voicemail and call back number back. - Discussed imaging with Dr. Christina and will order a MRI abdomen w/wo to evaluate lesion. Per nephrology do not need dialysis following MRI contrast. (3) Lung infiltrate: Code(s): R91.8 - Other nonspecific abnormal finding of lung field Status: Acute Assessment and Plan: - CXR: Bibasilar subsegmental atelectasis/consolidation. Small bilateral pleural effusions, greater on the right. - CT abdominal/pelvis: moderate bilateral pleural effusions with partial bilateral lower lobe atelectasis. - Risk factors: recent hospitalizations, chronic illnesses - Started on HAP tx: Cefepime to be administered with dialysis and azithromycin changed to PO. Vancomycin discontinued after MRSA negative, restarted 2/2 c diff infection. Discussed a PO antibiotic regimen and patient will be started on Levaquin. Discontinue azithromycin. - Viral PCR: Flu/COVID/RSV ordered - no supplemental O2 requirement - supportive treatment tyl prn - trend labs - cultures will be drawn with dialysis (4) Type 2 diabetes mellitus with hyperglycemia: Code(s): E11.65 - Type 2 diabetes mellitus with hyperglycemia Status: Acute Assessment and Plan: - home medication - none - monitor glucose levels with daily labs - A1C 07/22: 4.6 (5) Acute deep vein thrombosis (DVT) of right upper extremity: Code(s): I82.621 - Acute embolism and thrombosis of deep veins of right upper extremity Status: Acute Assessment and Plan: Per chart review, DVT in right axillary/ subclavian veins and chronic left IJ DVT - restarting Eliquis 2.5 mg BID until patient evaluated by GI for positive fecal occult with low hemoglobin (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 He was treated with steroids and was given antibiotics as a precaution.? He was discharged on or
[2023-07-30 08:13] LABS: Basophils Percent Auto 0.4 % (0.2-1.2); Eosinophils Absolute Auto 0.1 K/mm3 (0-0.3); Eosinophils Percent Auto 1.9 % (0-4.4); Hematocrit 24.8 % (42.0-52.0); Hemoglobin 7.1 g/dL (14.0-18.0); Immature Granulocyte Absolute 0.05 K/mm3 (0.00-0.031); Immature Granulocyte Percent A 0.9 % (0-0.5); Lymphocytes Absolute Auto 1.62 K/mm3 (0.9-3.2); Lymphocytes Percent Auto 30.7 % (18.3-44.2); Mean Corpuscular HGB Conc 28.6 g/dl (32-36); Mean Corpuscular Hemoglobin 27.1 pg (26-34); Mean Corpuscular Volume 94.7 fl (80-100); Mean Platelet Volume 9.2 fl (7.4-10.4); Monocytes Absolute Auto 0.9 K/mm3 (0.1-0.6); Monocytes Percent Auto 16.3 % (2.6-8.5); Neutrophils Absolute Auto 2.6 K/mm3 (1.3-6.7); Neutrophils Percent Auto 49.8 % (45.5-73.1); Platelet Count Result 301 k/mm3 (150-375); Red Blood Count 2.62 M/mm3 (4.6-6.20); Red Cell Distribution Width 18.1 % (11.5-14.5); White Blood Count 5.3 K/mm3 (4.5-10.0)
[2023-07-30 08:29] LABS: Alanine Aminotransferase 8 U/L (6-50); Albumin Level 3.1 g/dL (3.5-5.1); Alkaline Phosphatase 76 U/L (38-126); Anion Gap 7 mmol/L (4-12); Aspartate Amino Transferase 24 U/L (17-59); Bilirubin,Total 0.5 mg/dL (0.2-1.3); Blood Urea Nitrogen 18 mg/dL (9-20); Carbon Dioxide 27 mmol/L (22-30); Chloride 99 mmol/L (98-107); Estimated CRCL calculation 26 ml/min; Estimated Glomerular Filt Rate 25; Glucose 78 mg/dL (65-110); Potassium 3.3 mmol/L (3.4-5.0); Sodium 133 mmol/L (137-145)
[2023-07-30 09:08] LABS: Anisocytosis 1+; Hypochromasia 1+; Platelet Estimate Adequate (Adequate); Schistocytes None Seen
--- NOTE | 2023-07-30 09:10 | PM.PNNEP ---
Progress Note: A&P Assessment and Plan (1) CHRISTIANO (acute kidney injury): Code(s): N17.9 - Acute kidney failure, unspecified Status: Acute Assessment and Plan: HD today progressive decline in renal function during acute hospitalization at [facility] thought to be secondary to ATN from fungal infection and use of amphotericin B further complicated by fluid overload and uremia initiated on hemodialysis on 07/09/23 (and has remained dialysis dependent since) s/p tunneled HD catheter (right femoral) on 07/15 continue HD on M/W/F schedule for now follow trend of repeat labs and UOP to assess for potential renal recovery it is possible that he may not regain function in his transplant kidney and may be dialysis dependent (2) Chronic kidney disease, stage IV (severe): Code(s): N18.4 - Chronic kidney disease, stage 4 (severe) Status: Chronic Assessment and Plan: baseline creatinine has been running around 2.6 - 2.8mg/dl 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 along with high dose diuretic therapy to maintain volume status (3) Anemia: Code(s): D64.9 - Anemia, unspecified Status: Acute Assessment and Plan: due to CHRISTIANO, CKD, and acute illness complicated by use of anticoagulation (Eliquis on hold) HOWEVER, noted to be guiaiac positive.... GI following noted plan for EGD/colonoscopy today high dose Epogen with hemodialysis PRBC transfusion per protocol follow trend of H/H (4) Status post kidney transplant: Code(s): Z94.0 - Kidney transplant status Status: Chronic Assessment and Plan: occurred in 2019 was being treated with combination of mycophenolate (360 twice daily), Envarsus (1 mg daily) and prednisone 5 mg daily for immunosuppression mycophenolate was discontinued once fungal skin infection discovered/confirmed given ongoing use of fluconazole, follow tacrolimus levels closely goal tacrolimus level is 2 - 4 (was getting tacrolimus 0.5mg bid at [facility] as opposed to envarsus) this was apparently discussed with patient's [facility] party coordinator (Vanita [phone]) continue tacrolimus and prednisone (5) 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 Duran (Infectious Disease) in clinic completed antibiotics for secondary bacterial skin infection with MSSA, Klebsiella, Proteus (6) Chronic combined systolic (congestive) and diastolic (congestive) heart failure: Code(s): I50.42 - Chronic combined systolic (congestive) and diastolic (congestive) heart failure Status: Acute Assessment and Plan: due to worsening renal dysfunction and diuretic resistance complicated by large right pleural effusion as noted during hospitalization at [facility] s/p thoracentesis (07/10) with 1200cc out fluid analysis consistent with transudative effusion from volume overload continue oral diuretics (since still makes urine) fluid removal with HD in an effort to maintain euvolemia (7) Hypertension: Code(s): I10 - Essential (primary) hypertension Status: Chronic Assessment and Plan: reasonable control at this time follow trend of hemodyamics (8) Obstructive sleep apnea: Code(s): G47.33 - Obstructive sleep apnea (adult) (pediatric) Status: Chronic Assessment and Plan: continue home CPAP when at rest (9) Diabetes mellitus: Code(s): E11.9 - Type 2 diabetes mellitus without complications Status: Chronic Assessment and Plan: follow accu-cheks glycemic control per hospitalists Will continue to
--- NOTE | 2023-07-30 09:10 | P.PNNP_ITS ---
Progress Note: A&P Assessment and Plan (1) CHRISTIANO (acute kidney injury): Code(s): N17.9 - Acute kidney failure, unspecified Status: Acute Assessment and Plan: * HD today * progressive decline in renal function during acute hospitalization at [facility] * thought to be secondary to ATN from fungal infection and use of amphotericin B * further complicated by fluid overload and uremia * initiated on hemodialysis on 07/09/23 (and has remained dialysis dependent since) * s/p tunneled HD catheter (right femoral) on 07/15 * continue HD on M//F schedule for now * follow trend of repeat labs and UOP to assess for potential renal recovery * it is possible that he may not regain function in his transplant kidney and may be dialysis dependent (2) Chronic kidney disease, stage IV (severe): Code(s): N18.4 - Chronic kidney disease, stage 4 (severe) Status: Chronic Assessment and Plan: * baseline creatinine has been running around 2.6 - 2.8mg/dl * 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 * GI following * noted plan for EGD/colonoscopy today * high dose Epogen with hemodialysis * PRBC transfusion per protocol * follow trend of H/H (4) Status post kidney transplant: Code(s): Z94.0 - Kidney transplant status Status: Chronic Assessment and Plan: * occurred in 2019 * was being treated with combination of mycophenolate (360 twice daily), Envarsus (1 mg daily) and prednisone 5 mg daily for immunosuppression * mycophenolate was discontinued once fungal skin infection discovered/confirmed * given ongoing use of fluconazole, follow tacrolimus levels closely * goal tacrolimus level is 2 - 4 (was getting tacrolimus 0.5mg bid at [facility] as opposed to envarsus) * this was apparently discussed with patient's [facility] coordinator of placement (Vanita [phone]) * continue tacrolimus and prednisone (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 Duran (Infectious Disease) in clinic * completed antibiotics for secondary bacterial skin infection with MSSA, Klebsiella, Proteus (6) Chronic combined systolic (congestive) and diastolic (congestive) heart failure: Code(s): I50.42 - Chronic combined systolic (congestive) and diastolic (congestive) heart failure Status: Acute Assessment and Plan: * due to worsening renal dysfunction and diuretic resistance * complicated by large right pleural effusion as noted during hospitalization at [facility] * s/p thoracentesis (07/10) with 1200cc out * fluid analysis consistent with transudative effusion from volume overload * continue oral diuretics (since still makes urine) * fluid removal with HD in an effort to maintain euvolemia (7) Hypertension: Code(s): I10 - Essential (primary) hypertension Status: Chronic Assessment and Plan: * reasonable control at
[2023-07-30] MEDS: EPOETIN ALFA-EPBX 10,000 UNITS/ML VIAL 10000 UNITS IV PUSH (09:45)
--- NOTE | 2023-07-30 11:23 | PC.NURSE ---
Return from Dialysis per bed.
--- NOTE | 2023-07-30 14:45 | PC.NURSE ---
Patient to GI lab per stretcher.
[2023-07-30] MEDS: SODIUM CHLORIDE 0.9% IV 500 ML 10 ML IV CONT (15:14)
--- NOTE | 2023-07-30 15:42 | SUR.OPER ---
EGD end 152 Colonoscopy start 152
[2023-07-30] MEDS: CHOLECALCIFEROL 1,000 UNITS TABLET 2000 UNITS PO (16:28)
[2023-07-30] MEDS: ESCITALOPRAM OXALATE 5 MG TABLET PO (16:28)
[2023-07-30] MEDS: ASCORBIC ACID 500 MG TABLET 1000 MG PO (16:28)
[2023-07-30] MEDS: BUMETANIDE 1 MG TABLET 2 MG PO (16:28)
[2023-07-30] MEDS: FERROUS SULFATE 325 MG TABLET DR BY MOUTH (16:28)
[2023-07-30] MEDS: FLUCONAZOLE 100 MG TABLET 200 MG PO (16:28)
[2023-07-30] MEDS: carvediloL 12.5 MG TABLET 25 MG PO (16:28)
[2023-07-30] MEDS: allopurinoL 100 MG TABLET 200 MG PO (16:28)
[2023-07-30] MEDS: ATORVASTATIN 40 MG TABLET PO (16:29)
[2023-07-30] MEDS: predniSONE 5 MG TABLET PO (16:29)
[2023-07-30] MEDS: ASPIRIN 81 MG ENTERIC TABLET PO (17:17)
[2023-07-30] MEDS: PANTOPRAZOLE 40 MG TABLET PO (17:17)
[2023-07-30] MEDS: APIXABAN 2.5 MG TABLET PO (20:42)
[2023-07-30] MEDS: levoFLOXacin 500 MG TABLET PO (20:42)
[2023-07-31] VITALS (11 sets, daily range): BP systolic 130–187; BP diastolic 41–92; PULSE 56–126; RESP 18; TEMP 36.1–36.9; O2SAT 95–97
[2023-07-31] MEDS: VANCOMYCIN HCL 125 MG ORAL CAPSULE PO ×4 (05:47→23:15)
[2023-07-31 06:30] LABS: Basophils Percent Auto 0.4 % (0.2-1.2); Eosinophils Absolute Auto 0.1 K/mm3 (0-0.3); Eosinophils Percent Auto 1.4 % (0-4.4); Hematocrit 26.8 % (42.0-52.0); Hemoglobin 7.5 g/dL (14.0-18.0); Immature Granulocyte Absolute 0.05 K/mm3 (0.00-0.031); Lymphocytes Percent Auto 28.1 % (18.3-44.2); Mean Corpuscular Hemoglobin 26.9 pg (26-34); Mean Corpuscular Volume 96.1 fl (80-100); Mean Platelet Volume 9.5 fl (7.4-10.4); Monocytes Absolute Auto 0.8 K/mm3 (0.1-0.6); Monocytes Percent Auto 16.5 % (2.6-8.5); Neutrophils Absolute Auto 2.6 K/mm3 (1.3-6.7); Neutrophils Percent Auto 52.6 % (45.5-73.1); Platelet Count Result 287 k/mm3 (150-375); Red Blood Count 2.79 M/mm3 (4.6-6.20); Red Cell Distribution Width 17.9 % (11.5-14.5)
[2023-07-31 06:35] LABS: Alanine Aminotransferase 9 U/L (6-50); Albumin Level 3.2 g/dL (3.5-5.1); Alkaline Phosphatase 77 U/L (38-126); Anion Gap 7 mmol/L (4-12); Aspartate Amino Transferase 26 U/L (17-59); Bilirubin,Total 0.4 mg/dL (0.2-1.3); Blood Urea Nitrogen 8 mg/dL (9-20); Calcium 8.8 mg/dL (8.4-10.2); Carbon Dioxide 22 mmol/L (22-30); Chloride 108 mmol/L (98-107); Estimated CRCL calculation 35 ml/min; Estimated Glomerular Filt Rate 36; Glucose 115 mg/dL (65-110); Sodium 137 mmol/L (137-145)
[2023-07-31] MEDS: CHOLECALCIFEROL 1,000 UNITS TABLET 2000 UNITS PO (08:41)
[2023-07-31] MEDS: carvediloL 12.5 MG TABLET 25 MG PO ×2 (08:42→17:57)
[2023-07-31] MEDS: ASCORBIC ACID 500 MG TABLET 1000 MG PO ×2 (08:42→17:57)
[2023-07-31] MEDS: ASPIRIN 81 MG ENTERIC TABLET PO (08:45)
[2023-07-31] MEDS: predniSONE 5 MG TABLET PO (08:45)
[2023-07-31] MEDS: ATORVASTATIN 40 MG TABLET PO (08:45)
[2023-07-31] MEDS: PANTOPRAZOLE 40 MG TABLET PO (08:45)
[2023-07-31] MEDS: ESCITALOPRAM OXALATE 5 MG TABLET PO (08:45)
[2023-07-31] MEDS: APIXABAN 2.5 MG TABLET PO ×2 (08:45→20:59)
[2023-07-31] MEDS: BUMETANIDE 1 MG TABLET 2 MG PO ×2 (08:45→17:57)
[2023-07-31] MEDS: FLUCONAZOLE 100 MG TABLET 200 MG PO (08:45)
[2023-07-31] MEDS: FERROUS SULFATE 325 MG TABLET DR BY MOUTH ×3 (08:45→17:57)
[2023-07-31] MEDS: allopurinoL 100 MG TABLET 200 MG PO (08:45)
[2023-07-31 09:27] LABS: Anisocytosis 1+; Hypochromasia 1+; Platelet Estimate Adequate (Adequate); Polychromasia 1+
[2023-07-31 09:28] LABS: Poikilocytosis 1+
[2023-07-31] MEDS: WATER FOR IRRIGATION, STERILE 1,000 ML BOTTLE 1000 ML (12:01)
--- NOTE | 2023-07-31 13:01 | P.PNNP_ITS ---
Progress Note: A&P Assessment and Plan (1) CHRISTIANO (acute kidney injury): Code(s): N17.9 - Acute kidney failure, unspecified Status: Acute Assessment and Plan: * HD today * progressive decline in renal function during acute hospitalization at [facility] * thought to be secondary to ATN from fungal infection and use of amphotericin B * further complicated by fluid overload and uremia * initiated on hemodialysis on 07/09/23 (and has remained dialysis dependent since) * s/p tunneled HD catheter (right femoral) on 07/15 * continue HD on M// schedule for now * follow trend of repeat labs and UOP to assess for potential renal recovery * it is possible that he may not regain function in his transplant kidney and may be dialysis dependent (2) Chronic kidney disease, stage IV (severe): Code(s): N18.4 - Chronic kidney disease, stage 4 (severe) Status: Chronic Assessment and Plan: * baseline creatinine has been running around 2.6 - 2.8mg/dl * 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 * GI following * s/p EGD/colonoscopy (on 07/29) - EGD unremarkable; colonoscopy with 3 mm cecal polyp and 3mm descending colon polyp; no active bleeding. * high dose Epogen with hemodialysis * PRBC transfusion per protocol * follow trend of H/H (4) C. difficile colitis: Code(s): A04.72 - Enterocolitis due to Clostridium difficile, not specified as recurrent Status: Acute Assessment and Plan: * as noted by testing * diarrhea seems to be improving * on oral vancomycin (5) Status post kidney transplant: Code(s): Z94.0 - Kidney transplant status Status: Chronic Assessment and Plan: * occurred in 2019 * was being treated with combination of mycophenolate (360 twice daily), Envarsus (1 mg daily) and prednisone 5 mg daily for immunosuppression * mycophenolate was discontinued once fungal skin infection discovered/confirmed * given ongoing use of fluconazole, follow tacrolimus levels closely * goal tacrolimus level is 2 - 4 (was getting tacrolimus 0.5mg bid at [facility] as opposed to [facility]) * this was apparently discussed with patient's [facility] patient care coordinator (Vanita [phone]) * continue tacrolimus and prednisone (6) 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 Duran (Infectious Disease) in clinic * completed antibiotics for secondary bacterial skin infection with MSSA, Klebsiella, Proteus (7) Chronic combined systolic (congestive) and diastolic (congestive) heart failure: Code(s): I50.42 - Chronic combined systolic (congestive) and diastolic (congestive) heart failure Status: Acute Assessment and Plan: * due to worsening renal dysfunction and diuretic resistance * complicated by large right pleural effusion as noted during hospitalization at [facility] * s
--- NOTE | 2023-07-31 13:01 | PM.PNNEP ---
Progress Note: A&P Assessment and Plan (1) CHRISTIANO (acute kidney injury): Code(s): N17.9 - Acute kidney failure, unspecified Status: Acute Assessment and Plan: HD today progressive decline in renal function during acute hospitalization at [facility] thought to be secondary to ATN from fungal infection and use of amphotericin B further complicated by fluid overload and uremia initiated on hemodialysis on 07/09/23 (and has remained dialysis dependent since) s/p tunneled HD catheter (right femoral) on 07/15 continue HD on M// schedule for now follow trend of repeat labs and UOP to assess for potential renal recovery it is possible that he may not regain function in his transplant kidney and may be dialysis dependent (2) Chronic kidney disease, stage IV (severe): Code(s): N18.4 - Chronic kidney disease, stage 4 (severe) Status: Chronic Assessment and Plan: baseline creatinine has been running around 2.6 - 2.8mg/dl 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 along with high dose diuretic therapy to maintain volume status (3) Anemia: Code(s): D64.9 - Anemia, unspecified Status: Acute Assessment and Plan: H/H relatively stable due to CHRISTIANO, CKD, and acute illness complicated by use of anticoagulation (Eliquis on hold) HOWEVER, noted to be guaiac positive.... GI following s/p EGD/colonoscopy (on 07/29) - EGD unremarkable; colonoscopy with 3 mm cecal polyp and 3mm descending colon polyp; no active bleeding. high dose Epogen with hemodialysis PRBC transfusion per protocol follow trend of H/H (4) C. difficile colitis: Code(s): A04.72 - Enterocolitis due to Clostridium difficile, not specified as recurrent Status: Acute Assessment and Plan: as noted by testing diarrhea seems to be improving on oral vancomycin (5) Status post kidney transplant: Code(s): Z94.0 - Kidney transplant status Status: Chronic Assessment and Plan: occurred in 2019 was being treated with combination of mycophenolate (360 twice daily), Envarsus (1 mg daily) and prednisone 5 mg daily for immunosuppression mycophenolate was discontinued once fungal skin infection discovered/confirmed given ongoing use of fluconazole, follow tacrolimus levels closely goal tacrolimus level is 2 - 4 (was getting tacrolimus 0.5mg bid at [facility] as opposed to envarsus) this was apparently discussed with patient's [facility] admissions coordinator (Vanita [phone]) continue tacrolimus and prednisone (6) 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 Duran (Infectious Disease) in clinic completed antibiotics for secondary bacterial skin infection with MSSA, Klebsiella, Proteus (7) Chronic combined systolic (congestive) and diastolic (congestive) heart failure: Code(s): I50.42 - Chronic combined systolic (congestive) and diastolic (congestive) heart failure Status: Acute Assessment and Plan: due to worsening renal dysfunction and diuretic resistance complicated by large right pleural effusion as noted during hospitalization at [facility] s/p thoracentesis (07/10) with 1200cc out fluid analysis consistent with transudative effusion from volume overload continue oral diuretics (since still makes urine) fluid removal with HD in an effort to maintain euvolemia (8) Hypertension: Code(s): I10 - Essential (primary) hypertension Status: Chronic Assessment and Plan: reasonable control at this time follow trend of hemodyamics (9) Obstructive sleep apnea:
--- NOTE | 2023-07-31 13:50 | WPDGIPROGNO ---
Progress Note: A&P Assessment and Plan (1) Anemia in ESRD (end-stage renal disease): Code(s): N18.6 - End stage renal disease; D63.1 - Anemia in chronic kidney disease Status: Acute Assessment and Plan: unremarkable scopes anemia probably multifactorial will follow as needed (2) Acute kidney injury superimposed on CKD: Code(s): N17.9 - Acute kidney failure, unspecified; N18.9 - Chronic kidney disease, unspecified Status: Acute Assessment and Plan: he has kidney transplant and back on dialysis after received iv antifungal that caused again renal damage by nephrology (3) C. difficile colitis: Code(s): A04.72 - Enterocolitis due to Clostridium difficile, not specified as recurrent Status: Acute Assessment and Plan: on treatment, better (4) Heme positive stool: Code(s): R19.5 - Other fecal abnormalities Status: Acute Assessment and Plan: probably combination from hemorrhoids and + C diff (5) Renal transplant disorder: Code(s): T86.10 - Unspecified complication of kidney transplant Status: Acute Subjective Date/time seen: 07/31/23 13:50 Interval history: egd and colonoscopy without major findings to explain anemia he is doing ok, wearing his cpap diarrhea has improved Review of Systems Review of Systems: All systems reviewed & are unremarkable except as noted in HPI and below Exam Const: General: comfortable and no acute distress Other: wearing cpap HENMT: Face/Nose/Sinus: Normal nares present Eyes: General: appearance normal, both eyes and all related structures Neck: Neck: supple Resp: Auscultation: clear to auscultation bilaterally Cardio: Rate: regular rate Rhythm: regular rhythm GI: Inspection: non-distended GI Palp: Yes Soft to palpation and No Tenderness to palpation present (GI) Auscultation: normal bowel sounds Skin: Other: scabbing in arms- worse left arm Neuro: Speech: normal speech Motor exam (neuro): 5/5 motor strength present throughout Extrem: General: pedal edema Psych: Mental Status: mental status grossly normal Objective Data Vital Signs Vital Signs: Vital Signs - 24 hr 07/30/23 14:00 07/30/23 15:05 07/30/23 15:38 Temperature 97.2 F L 97.7 F Pulse Rate 66 63 65 Respiratory Rate 16 14 18 Blood Pressure 144/39 H 145/48 H 102/32 L Pulse Oximetry 95 100 100 Oxygen Delivery Room Air Room Air 07/30/23 15:48 07/30/23 15:58 07/30/23 16:28 Temperature Pulse Rate 67 68 63 Respiratory Rate 17 18 Blood Pressure 124/37 L 152/48 H Pulse Oximetry 100 100 Oxygen Delivery Room Air Room Air 07/30/23 16:42 07/30/23 16:05 07/30/23 20:00 Temperature 97.4 F L Pulse Rate 63 68 61 Respiratory Rate 18 Blood Pressure 135/68 Pulse Oximetry 97 Oxygen Delivery 07/30/23 20:00 07/30/23 22:19 07/31/23 00:00 Temperature 97.0 F L Pulse Rate 63 61 64 Respiratory Rate 18 16 Blood Pressure 162/50 H Pulse Oximetry 97 94 Oxygen Delivery Room Air 07/31/23 04:00 07/31/23 06:00 07/31/23 08:42 Temperature 97.0 F L Pulse Rate 61 56 L 58 L Respiratory Rate 18 Blood Pressure 187/52 H Pulse Oximetry 97 Oxygen Delivery 07/31/23 08:45 07/31/23 09:48 Temperature Pulse Rate 58 L Respiratory Rate Blood Pressure Pulse Oximetry Oxygen Delivery Room Air Room Air Intake/Output Intake/Output: Intake & Output 07/28/23 07/29/23 07/30/23 07/31/23 23:59 23:59 23:59 23:59 Intake Total 490 1440 290 60 Output Total 2500 950 2000 -2009 490 -9690 60 Meds/Results Medications: Active Medications Generic Name Dose Route Start Last Admin Trade Name Freq PRN Reason Stop Dose Admin Acetaminophen 650 mg 07/29/23 09:46 Acetaminophen 325 Mg Tablet PO Q4H PRN Pain Allopurinol 200 mg 07/28/23 08:00 07/31/23 08:45 Allopurinol 100 Mg Tablet PO 200 mg DAILY@0800 ROULA Administration Apixaban
--- NOTE | 2023-07-31 15:47 | PM.IMPN ---
Progress Note: A&P Assessment and Plan (1) Anemia in ESRD (end-stage renal disease): Code(s): N18.6 - End stage renal disease; D63.1 - Anemia in chronic kidney disease Status: Acute Assessment and Plan: H/H 6.6/23.6 on admission. Anemia likely related to patients worsening renal function. Patient is a vasculopath and can only be accessed by hemodialysis nurse. There is no dialysis nurse in the ED overnight, per ED note the case was discussed with Dr. Christina who was comfortable transfusing the patent on 07/27 with dialysis. Of note, patient does report dark stools but he is on iron supplementation TID. - As a result patient did not receive a unit of pRBC until this am during dialysis. H/H responded appropriatly to blood transfusion and remains stable at this time. - Continue to monitor H/H - Blood transfusion if hemoglobin < 7.0 - Fecal occult positive. GI consulted. EGD unremarkable. Colonoscopy with 3 mm cecal polyp and 3mm descending colon polyp. No active bleeding. (2) End stage renal disease on dialysis: Code(s): N18.6 - End stage renal disease; Z99.2 - Dependence on renal dialysis Status: Acute Assessment and Plan: - Nephrology consulted - HD plan MWF s/p insertion of tunneled hemodialysis catheter right femoral vein on 07/[address] Houston - Continue Tacrolimus 1 mg daily. Tacrolimus level weekly (wednesday) to draw blood prior to the dose. Goal tacro level is 2-4 - Continue prednisone 5 mg p.o. daily - Continue Allopurinol 200 mg p.o. daily - Abdominal/pelvis CT: 2.7 cm left renal mass, which could reflect solid lesion versus possibly hyperdense cyst. Pre and postcontrast CT or MR recommended to assess for solid lesion which would be suspicious for neoplasm. Right lower quadrant transplant kidney, without hydronephrosis. - Call made to transplant coordination (Vanita). Voicemail and call back number back. - Discussed imaging with Dr. Christina and will order a MRI abdomen w/wo to evaluate lesion. Per nephrology do not need dialysis following MRI contrast. - Abdomen MRI: 2.8 cm hemorrhagic cyst in left kidney. (3) Lung infiltrate: Code(s): R91.8 - Other nonspecific abnormal finding of lung field Status: Acute Assessment and Plan: - CXR: Bibasilar subsegmental atelectasis/consolidation. Small bilateral pleural effusions, greater on the right. - CT abdominal/pelvis: moderate bilateral pleural effusions with partial bilateral lower lobe atelectasis. - MRI abdomen 07/30: Moderate-sized right and small left pleural effusions. - Risk factors: recent hospitalizations, chronic illnesses - Started on HAP tx: Cefepime to be administered with dialysis and azithromycin changed to PO. Vancomycin discontinued after MRSA negative, restarted 2/2 c diff infection. Discussed a PO antibiotic regimen and patient will be started on Levaquin. Discontinue azithromycin. - Viral PCR: Flu/COVID/RSV ordered - no supplemental O2 requirement - supportive treatment tyl prn - trend labs - blood cultures: no growth to date (4) Type 2 diabetes mellitus with hyperglycemia: Code(s): E11.65 - Type 2 diabetes mellitus with hyperglycemia Status: Acute Assessment and Plan: - home medication - none - monitor glucose levels with daily labs - A1C 07/22: 4.6 (5) Acute deep vein thrombosis (DVT) of right upper extremity: Code(s): I82.621 - Acute embolism and thrombosis of deep veins of right upper extremity Status: Acute Assessment and Plan: Per chart review, DVT in right axillary/ subclavian veins and chronic left IJ DVT - restarting Eliquis 2.5 mg BID until patient evaluated by GI for positive fecal occult with low hemoglobin - Patient concerned that he will not be able to affort eliquis on discharge. Will consult care coordination. 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
[2023-08-01] VITALS: PULSE 59
[2023-08-01 04:00] VITALS: PULSE 57
[2023-08-01 04:47] VITALS: BP 135/50; PULSE 56; RESP 20; TEMP 37.3; O2SAT 95
[2023-08-01] MEDS: VANCOMYCIN HCL 125 MG ORAL CAPSULE PO ×2 (05:49→12:09)
[2023-08-01 06:05] LABS: Basophils Percent Auto 0.3 % (0.2-1.2); Eosinophils Absolute Auto 0.1 K/mm3 (0-0.3); Eosinophils Percent Auto 1.9 % (0-4.4); Hematocrit 25.4 % (42.0-52.0); Hemoglobin 7.1 g/dL (14.0-18.0); Immature Granulocyte Absolute 0.05 K/mm3 (0.00-0.031); Immature Granulocyte Percent A 0.8 % (0-0.5); Lymphocytes Absolute Auto 1.62 K/mm3 (0.9-3.2); Lymphocytes Percent Auto 27.5 % (18.3-44.2); Mean Corpuscular Hemoglobin 26.4 pg (26-34); Mean Corpuscular Volume 94.4 fl (80-100); Mean Platelet Volume 9.1 fl (7.4-10.4); Monocytes Absolute Auto 0.8 K/mm3 (0.1-0.6); Monocytes Percent Auto 13.6 % (2.6-8.5); Neutrophils Absolute Auto 3.3 K/mm3 (1.3-6.7); Neutrophils Percent Auto 55.9 % (45.5-73.1); Platelet Count Result 257 k/mm3 (150-375); Red Blood Count 2.69 M/mm3 (4.6-6.20); Red Cell Distribution Width 17.4 % (11.5-14.5); White Blood Count 5.9 K/mm3 (4.5-10.0)
[2023-08-01 06:36] LABS: Alanine Aminotransferase 8 U/L (6-50); Albumin Level 3.2 g/dL (3.5-5.1); Alkaline Phosphatase 74 U/L (38-126); Anion Gap 6 mmol/L (4-12); Aspartate Amino Transferase 19 U/L (17-59); Bilirubin,Total 0.5 mg/dL (0.2-1.3); Blood Urea Nitrogen 15 mg/dL (9-20); Carbon Dioxide 25 mmol/L (22-30); Chloride 103 mmol/L (98-107); Estimated CRCL calculation 25 ml/min; Estimated Glomerular Filt Rate 24; Glucose 97 mg/dL (65-110); Potassium 3.7 mmol/L (3.4-5.0); Sodium 134 mmol/L (137-145)
[2023-08-01 06:43] LABS: Anisocytosis 1+; Hypochromasia 1+; Microcytosis 1+ (NORMAL); Platelet Estimate Adequate (Adequate); Polychromasia 1+
[2023-08-01 06:44] LABS: Schistocytes None Seen
[2023-08-01] MEDS: BUMETANIDE 1 MG TABLET 2 MG PO (08:38)
[2023-08-01 08:39] VITALS: PULSE 65
[2023-08-01] MEDS: PANTOPRAZOLE 40 MG TABLET PO (08:39)
[2023-08-01] MEDS: APIXABAN 2.5 MG TABLET PO (08:39)
[2023-08-01] MEDS: predniSONE 5 MG TABLET PO (08:39)
[2023-08-01] MEDS: FERROUS SULFATE 325 MG TABLET DR BY MOUTH ×2 (08:39→12:09)
[2023-08-01] MEDS: carvediloL 12.5 MG TABLET 25 MG PO (08:39)
[2023-08-01] MEDS: ATORVASTATIN 40 MG TABLET PO (08:39)
[2023-08-01] MEDS: ASCORBIC ACID 500 MG TABLET 1000 MG PO (08:39)
[2023-08-01] MEDS: ASPIRIN 81 MG ENTERIC TABLET PO (08:39)
[2023-08-01] MEDS: ESCITALOPRAM OXALATE 5 MG TABLET PO (08:40)
[2023-08-01] MEDS: allopurinoL 100 MG TABLET 200 MG PO (08:40)
[2023-08-01] MEDS: FLUCONAZOLE 100 MG TABLET 200 MG PO (08:40)
[2023-08-01] MEDS: CHOLECALCIFEROL 1,000 UNITS TABLET 2000 UNITS PO (08:42)
--- NOTE | 2023-08-01 10:39 | P.PNNP_ITS ---
Progress Note: A&P Assessment and Plan (1) CHRISTIANO (acute kidney injury): Code(s): N17.9 - Acute kidney failure, unspecified Status: Acute Assessment and Plan: * HD tomorrow * progressive decline in renal function during acute hospitalization at [facility] * thought to be secondary to ATN from fungal infection and use of amphotericin B * further complicated by fluid overload and uremia * initiated on hemodialysis on 07/09/23 (and has remained dialysis dependent since) * s/p tunneled HD catheter (right femoral) on 07/15 * continue HD on // schedule for now * follow trend of repeat labs and UOP to assess for potential renal recovery * it is possible that he may not regain function in his transplant kidney and may be dialysis dependent (2) Chronic kidney disease, stage IV (severe): Code(s): N18.4 - Chronic kidney disease, stage 4 (severe) Status: Chronic Assessment and Plan: * baseline creatinine has been running around 2.6 - 2.8mg/dl * 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 * GI following * s/p EGD/colonoscopy (on 07/29) - EGD unremarkable; colonoscopy with 3 mm cecal polyp and 3mm descending colon polyp; no active bleeding * high dose Epogen with hemodialysis * PRBC transfusion per protocol * follow trend of H/H (4) C. difficile colitis: Code(s): A04.72 - Enterocolitis due to Clostridium difficile, not specified as recurrent Status: Acute Assessment and Plan: * as noted by testing * diarrhea seems to be improving * on oral vancomycin (5) Status post kidney transplant: Code(s): Z94.0 - Kidney transplant status Status: Chronic Assessment and Plan: * occurred in 2019 * was being treated with combination of mycophenolate (360 twice daily), Envarsus (1 mg daily) and prednisone 5 mg daily for immunosuppression * mycophenolate was discontinued once fungal skin infection discovered/confirmed * given ongoing use of fluconazole, follow tacrolimus levels closely * goal tacrolimus level is 2 - 4 (was getting tacrolimus 0.5mg bid at [facility] as opposed to [facility]) * this was apparently discussed with patient's [facility] waste reduction coordinator (Vanita [phone]) * continue tacrolimus and prednisone (6) 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 Duran (Infectious Disease) in clinic * completed antibiotics for secondary bacterial skin infection with MSSA, Klebsiella, Proteus (7) Chronic combined systolic (congestive) and diastolic (congestive) heart failure: Code(s): I50.42 - Chronic combined systolic (congestive) and diastolic (congestive) heart failure Status: Acute Assessment and Plan: * due to worsening renal dysfunction and diuretic resistance * complicated by large right pleural effusion as noted during hospitalization at [facility] *
--- NOTE | 2023-08-01 10:39 | PM.PNNEP ---
Progress Note: A&P Assessment and Plan (1) CHRISTIANO (acute kidney injury): Code(s): N17.9 - Acute kidney failure, unspecified Status: Acute Assessment and Plan: HD tomorrow progressive decline in renal function during acute hospitalization at [facility] thought to be secondary to ATN from fungal infection and use of amphotericin B further complicated by fluid overload and uremia initiated on hemodialysis on 07/09/23 (and has remained dialysis dependent since) s/p tunneled HD catheter (right femoral) on 07/15 continue HD on // schedule for now follow trend of repeat labs and UOP to assess for potential renal recovery it is possible that he may not regain function in his transplant kidney and may be dialysis dependent (2) Chronic kidney disease, stage IV (severe): Code(s): N18.4 - Chronic kidney disease, stage 4 (severe) Status: Chronic Assessment and Plan: baseline creatinine has been running around 2.6 - 2.8mg/dl 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 along with high dose diuretic therapy to maintain volume status (3) Anemia: Code(s): D64.9 - Anemia, unspecified Status: Acute Assessment and Plan: H/H relatively stable due to CHRISTIANO, CKD, and acute illness complicated by use of anticoagulation (Eliquis on hold) HOWEVER, noted to be guaiac positive.... GI following s/p EGD/colonoscopy (on 07/29) - EGD unremarkable; colonoscopy with 3 mm cecal polyp and 3mm descending colon polyp; no active bleeding high dose Epogen with hemodialysis PRBC transfusion per protocol follow trend of H/H (4) C. difficile colitis: Code(s): A04.72 - Enterocolitis due to Clostridium difficile, not specified as recurrent Status: Acute Assessment and Plan: as noted by testing diarrhea seems to be improving on oral vancomycin (5) Status post kidney transplant: Code(s): Z94.0 - Kidney transplant status Status: Chronic Assessment and Plan: occurred in 2019 was being treated with combination of mycophenolate (360 twice daily), Envarsus (1 mg daily) and prednisone 5 mg daily for immunosuppression mycophenolate was discontinued once fungal skin infection discovered/confirmed given ongoing use of fluconazole, follow tacrolimus levels closely goal tacrolimus level is 2 - 4 (was getting tacrolimus 0.5mg bid at [facility] as opposed to [facility]) this was apparently discussed with patient's [facility] agency service coordinator (Vanita [phone]) continue tacrolimus and prednisone (6) 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 Duran (Infectious Disease) in clinic completed antibiotics for secondary bacterial skin infection with MSSA, Klebsiella, Proteus (7) Chronic combined systolic (congestive) and diastolic (congestive) heart failure: Code(s): I50.42 - Chronic combined systolic (congestive) and diastolic (congestive) heart failure Status: Acute Assessment and Plan: due to worsening renal dysfunction and diuretic resistance complicated by large right pleural effusion as noted during hospitalization at [facility] s/p thoracentesis (07/10) with 1200cc out fluid analysis consistent with transudative effusion from volume overload continue oral diuretics (since still makes urine) fluid removal with HD in an effort to maintain euvolemia (8) Hypertension: Code(s): I10 - Essential (primary) hypertension Status: Chronic Assessment and Plan: reasonable control at this time follow trend of hemodyamics (9) Obstructive sleep apnea:
--- NOTE | 2023-08-01 13:17 | PCPTNOTE ---
Patient is being discharged home, double checked with nurse and that is true. Patient reports he would like to save his energy for going home and reports doesn't want to work at this time.
--- NOTE | 2023-08-01 13:43 | PM.DS ---
DS: Admitting Diagnosis Discharge Date 08/01/2023 Admitting Diagnosis Anemia in ESRD End stage renal disease on dialysis Lung infiltrate Type 2 diabetes mellitus with hyperglycemia Acute DVT Cutaneous cryptococcosis C diff Hypertension CAITY DS: Discharge Diagnosis Discharge Diagnosis (1) Anemia in ESRD (end-stage renal disease): Code(s): N18.6 - End stage renal disease; D63.1 - Anemia in chronic kidney disease Status: Acute (2) End stage renal disease on dialysis: Code(s): N18.6 - End stage renal disease; Z99.2 - Dependence on renal dialysis Status: Acute (3) Lung infiltrate: Code(s): R91.8 - Other nonspecific abnormal finding of lung field Status: Acute (4) Type 2 diabetes mellitus with hyperglycemia: Code(s): E11.65 - Type 2 diabetes mellitus with hyperglycemia Status: Acute (5) Acute deep vein thrombosis (DVT) of right upper extremity: Code(s): I82.621 - Acute embolism and thrombosis of deep veins of right upper extremity Status: Acute (6) Cutaneous cryptococcosis: Code(s): 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 difficile colitis: Code(s): A04.72 - Enterocolitis due to Clostridium difficile, not specified as recurrent Status: Acute (8) Hypertension: Code(s): I10 - Essential (primary) hypertension Status: Chronic (9) Obstructive sleep apnea: Code(s): G47.33 - Obstructive sleep apnea (adult) (pediatric) Status: Chronic DS: Summary Hospital Course Reason for hospitalization: Anemia in ESRD End stage renal disease on dialysis Lung infiltrate Type 2 diabetes mellitus with hyperglycemia Acute DVT Cutaneous cryptococcosis C diff Hypertension CAITY Hospital Course: 68 year old male? with a past medical history ESRD status post renal transplant in 2019, on chronic tacrolimus, prednisone, and dailysis MWF, c/b CKD 4, history of left upper extremity AV graft now with tunneled dialysis catheter in the right femoral vein, HFpEF, hypertension, type 2 DM, COPD, CAITY on CPAP, obesity, and cutaneous cryptococcal infection on fluconazole 200 mg daily and upper extremity DVT on eliquis presented to the hospital for a low hemoglobin of 6.6. Patient is a vasculopath and could only be accessed by hemodialysis nurse at time of admission. As a result patient did not receive a unit of pRBC until dialysis the next morning. His H/H responded appropriately and remained stable throughout admission. A fecal occult was positive, eliquis was held and patient was evaluated by GI. EGD and colonoscopy were performed and unremarkable. Eliquis restarted. On discharge H/H 7.1/25.4. This appears to be around patients baseline and he remains asymptomatic. Discussed with Dr. Christina and he states that at patients last admission to [facility] his H/H was low 7 as well and this is likely due to his ongoing ESRD. The labs will continued to be monitored at [facility]. A CXR revealed pneumonia and due to patients recent hospitalizations he was started on hospital acquired pneumonia treatment. He will remain on Levaquin at time of discharge to complete this antibiotic course. He did not require O2 supplementation and denies shortness of breath, cough, chest pain, palpitations at discharge. On abdomen/pelvis CT there was a 2.7 cm renal mass noted, follow up MRI revealed a hemorrhagic cyst. Patient aware and nephrology plans to follow. Patient noted that he had been having several episodes of diarrhea prior to admission. C diff positve. Patient started on vancomycin. His diarrheal symptoms are improving and he is tolerating a regular diet. He will remain on the vancomycin at discharge. Patient discharged to [facility] in stable condition. Status at Discharge Functional status at discharge: independent ambulation Time Spent with Patient Time attestation: Total time spent providing and/or coordinating discharge services: Time spe
[2023-08-02 17:39] LABS: Norovirus RNA PCR, Stool NOT DETECTED
[2023-08-05 18:43] LABS: Calprotectin, Stool 1500 mcg/g
[2023-08-07 15:34] LABS: Pancreatic Elastase, Stool >500 mcg/g
== END 2023-08-01 15:22 | DRG 291 ==
LOC: ANHED 21:24 → ANH3MED 21:56
PROVIDERS: Internal Medicine Gastroenterology; Internal Medicine Nephrology; Nurse Practitioner Family; Student in an Organized Health Care Education/Training Program; Admitting Provider Internal Medicine; Emergency Provider Emergency Medicine; PCP Internal Medicine; Visit Provider Internal Medicine
PROC: 0DJ08ZZ Inspection of Upper Intestinal Tract, Via Natural or Artificial Opening Endoscopic (ICD-10-PCS; CPT 43235; principal; 2023-07-30 15:00)
DX: I13.2 Hypertensive heart and chronic kidney disease with heart failure and with stage 5 chronic kidney disease, or end stage renal disease (principal); N17.0 Acute kidney failure with tubular necrosis; N18.6 End stage renal disease; B45.2 Cutaneous cryptococcosis; A04.72 Enterocolitis due to Clostridium difficile, not specified as recurrent; D62 Acute posthemorrhagic anemia; Z94.0 Kidney transplant status; I82.C22 Chronic embolism and thrombosis of left internal jugular vein; I82.A11 Acute embolism and thrombosis of right axillary vein; I82.B11 Acute embolism and thrombosis of right subclavian vein; N17.9 Acute kidney failure, unspecified; D63.1 Anemia in chronic kidney disease; I50.42 Chronic combined systolic (congestive) and diastolic (congestive) heart failure; E11.22 Type 2 diabetes mellitus with diabetic chronic kidney disease; E11.65 Type 2 diabetes mellitus with hyperglycemia; K63.5 Polyp of colon; K64.8 Other hemorrhoids; K57.30 Diverticulosis of large intestine without perforation or abscess without bleeding; J44.9 Chronic obstructive pulmonary disease, unspecified; Z20.822 Contact with and (suspected) exposure to COVID-19; R91.8 Other nonspecific abnormal finding of lung field; G47.33 Obstructive sleep apnea (adult) (pediatric); Z99.2 Dependence on renal dialysis
CPT/HCPCS: 36415; 36430; 71045; 74176; 74183; 80053; 82274; 82653; 83993; 85025; 85610; 85730; 86706; 86850; 86900; 86901; 86923; 87040; 87045; 87340; 87425; 87427; 87449; 87493; 87637; 87641; 87798; 88305; 93005; 96361; 96365; 96375; 97161; 97165; 97530; 97535; 99285; A9270; A9577; G0257; G0378; J0692; J1644; J1650; J7030; J7040; J7050; J7512; P9016; P9047; Q5105